=== PATIENT | male | born 1980 | race Caucasian/White ===

== ENCOUNTER 2016-07-27 01:22 | Observation (INO) | payer BC, MEDICARE ==
[2016-07-27 01:23] VITALS: BMI 26.6
--- NOTE | 2016-07-27 01:48 | ED PDOC ---
Arrival/HPI - General Chief Complaint: Chest Pain Time Seen by Provider: 07/27/16 01:24 Historian: Patient - History of Present Illness Narrative History of Present Illness (Text): 07/27/16 01:48 Andreas Monroe is a 34 year old male, whose PMHx includes renal failure with hemodialysis Wednesday//Wednesday, hypertension, neurogenetic bladder, and spinal stenosis, who presents to the ED complaining of chest pain. Patient states he woke up with mid-sternal chest pressure tonight at home. Patient notes before going to sleep tonight he was experiencing palpitations. Patient denies any fever, chills, shortness of breath, nausea, vomiting, diarrhea, urinary symptoms, back pain, neck pain, headache, dizziness, or any other complaints. PMD: Dr. Joshua Suarez Time/Duration: Other (tonight) Symptom Onset: Gradual Symptom Course: Unchanged Quality: Pressure Activities at Onset: Rest, Light, Sleeping Context: Home Past Medical History - Provider Review Nursing Documentation Reviewed: Yes - Infectious Disease Hx of Infectious Diseases: None - Tetanus Immunization Tetanus Immunization: Unknown - Cardiac Hx Hypertension: Yes Hx Pacemaker: No - Pulmonary Hx Respiratory Disorders: (SMOKES CIGARETTE H/O) Hx Asthma: No Hx Bronchitis: No Hx Chronic Obstructive Pulmonary Disease (COPD): No Hx Emphysema: No Hx Pneumonia: Yes - Neurological Hx Paralysis: No - HEENT Hx HEENT Disorder: No - Renal Hx Renal Disorder: Yes (LEFT NEPHRECTOMY) Hx Dialysis: Yes Date of Last Dialysis Treatment: 12/18/14 Hx Neurogenic Bladder: Yes Hx Renal Failure: Yes Other/Comment: straight cath - Endocrine/Metabolic Hx Endocrine Disorders: No Hx Hyperthyroidism: No Hx Hypothyroidism: No - Hematological/Oncological Hx Blood Transfusions: No Hx Blood Transfusion Reaction: No - Integumentary Hx Dermatological Disorder: No - Musculoskeletal/Rheumatological Hx Musculoskeletal Disorders: Yes (SPINAL SX -SPINAL CHORD SYNDROME) - Gastrointestinal Hx Gastrointestinal Disorders: Yes (CHRONIC CONSTIPATION,GI BLEED 15) Hx Constipation: Yes Hx Crohn's Disease: No Hx Diverticulitis: No Hx Gastroesophageal Reflux: No Hx Gastrointestinal Ulcer: No Hx Liver Failure: No Other/Comment: CONSTIPATION - Genitourinary/Gynecological Hx Genitourinary Disorders: Yes (ANURIA) Other/Comment: straight cath secondary to neurogenic bladder - Psychiatric Hx Emotional Abuse: No Hx Physical Abuse: No Hx Substance Use: Yes - Surgical History Hx Amputation: No Hx Appendectomy: No Hx Cardiac Catheterization: No Hx Section: No Hx Cholecystectomy: No Hx Coronary Stent: No Hx Gastric Bypass Surgery: No Hx Hysterectomy: No Hx Joint Replacement: No Hx Kidney Transplant: No Hx Liver Transplant: No Hx Mastectomy: No Hx Open Heart Surgery: No Hx Orthopedic Surgery: Yes Hx Splenectomy: No Hx Tonsillectomy: No Hx Tubal Ligation: No Hx Valve Replacement: No Hx Vascular Access Device: Yes (AV shunt) Other/Comment: spine surgery, bladder stent, nephrectomy, deviated septum - Anesthesia Hx Anesthesia: No Hx Anesthesia Reactions: No Hx Malignant Hyperthermia: No - Suicidal Assessment Feels Threatened In Home Enviroment: No Family/Social History - Physician Review Nursing Documentation Reviewed: Yes Family/Social History: No Known Family HX Smoking Status: Former Smoker Hx Alcohol Use: Yes Hx Substance Use: Yes Hx Substance Use Treatment: No Allergies/Home Meds Allergies/Adverse Reactions: Allergies levofloxacin Allergy (Intermediate, Verified 08/05/15 20:11) ITCHING vancomycin Allergy (Intermediate, Verified 08/05/15 20:11) RASH Home Medications: Home Meds Medication Instructions Recorded Confirmed Acetaminophen/Oxycodone Hydr 10 mg PO DAILY 05/13/14 08/05/15 [Percocet 10/325 mg Tab] Amphetamine Salt Combination 20 mg PO DAILY 05/13/14 08/05/15 [Adderall] Doxazosin [Cardura] 8 mg PO HS 05/13/14 08/05/15 Minoxidil [Loniten] 20 mg PO BID 05/13/14 08/05/15 Sevelamer Carbonate [Renvela] 800 mg PO AC 05/13/14 08/05/15 buPROPion XL [Wellbutrin XL] 300 mg PO QAM 05/13/14 08/05/15 cloNIDine 0.3 mg/24 hr 0.4 mg PO QWK 05/13/14 08/05/15 [catapres-TTS3 0.3 mg/24 hr] Escitalopram [Lexapro] 20 mg PO DAILY 07/20/14 08/05/15 Oxybutynin ER 10 mg PO HS 07/20/14 08/05/15 Review of Systems - Physician Review All systems were reviewed & negative as marked: Yes - Review of Systems Constitutional: Normal. absent: Fevers Eyes: Normal ENT: Normal Respiratory: Normal. absent: SOB, Cough Cardiovascular: Chest Pain, Palpitations Gastrointestinal: Normal. absent: Abdominal Pain, Diarrhea, Nausea, Vomiting Genitourinary Male: Normal. absent: Dysuria, Frequency, Hematuria, Urinary Output Changes Musculoskeletal: Normal. absent: Back Pain, Neck Pain Skin: Normal. absent: Rash Neurological: Normal. absent: Headache, Dizziness Endocrine: Normal Hemo/Lymphatic: Normal Psychiatric: Normal Physical Exam Vital Signs Reviewed: Yes Vital Signs Temp Pulse Pulse Resp BP Pulse Ox 07/27/16 04:41 191/109 H 07/27/16 04:39 82 18 95 07/27/16 02:02 85 07/27/16 01:23 98.1 F 78 20 177/82 H 98 Temperature: Afebrile Blood Pressure: Hypertensive Pulse: Regular Respiratory Rate: Normal Appearance: Positive for: Well-Appearing, Non-Toxic, Comfortable Pain Distress: None Mental Status: Positive for: Alert and Oriented X 3 - Systems Exam Head: Present: Atraumatic, Normocephalic Pupils: Present: PERRL Extroacular Muscles: Present: EOMI Conjunctiva: Present: Normal Mouth: Present: Moist Mucous Membranes Neck: Present: Normal Range of Motion Respiratory/Chest: Present: Clear to Auscultation, Good Air Exchange. No: Respiratory Distress, Accessory Muscle Use Cardiovascular: Present: Regular Rate and Rhythm, Normal S1, S2. No: Murmurs Abdomen: Present: Normal Bowel Sounds. No: Tenderness, Distention, Peritoneal Signs Back: Present: Normal Inspection Upper Extremity: Present: Normal Inspection. No: Cyanosis, Edema Lower Extremity: Present: Normal Inspection. No: Edema Neurological: Present: GCS=15, CN II-XII Intact, Speech Normal Skin: Present: Warm, Dry, Normal Color. No: Rashes Psychiatric: Present: Alert, Oriented x 3, Normal Insight, Normal Concentration Medical Decision Making ED Course and Treatment: 07/27/16 01:48 Impression: 35 year old male complaining of chest pressure tonight with palpitations. Differential Diagnosis include but are not limited to: Plan: -- EKG -- Chest X-ray -- Labs, cardiac enzymes -- Nitroglycerin -- Aspirin -- Morphine -- Reassess and disposition Prior Visits: Notes and results from previous visits were reviewed. Progress Notes: Reviewed EKG, NSR at [address] bpm[address] Non-specific ST/T-wave changes. 07/27/16 04:23 Reviewed radiology, Chest X-ray shows no active disease. 07/27/16 05:[address] Suarez, who is aware and agrees with plan. Accepts pt in to her service. Pt will go to Telemetry observation for chest pain and hyperkalemia. Requests Dr. Loob on consult. Pt is no acute distress. Discussed results and hospital observation plan with pt , who is aware and verbalizes understanding. - Lab Interpretations Lab Results: 07/27/16 02:07 07/27/16 04:20 Lab Results 07/27/16 04:20: Sodium 140, Potassium 5.6 H* D, Chloride 99, Carbon Dioxide 29, Anion Gap 18, BUN 47 H, Creatinine 9.1 H*, Est GFR ( Amer) 8, Est GFR ( Non-Af Amer) 7, Random Glucose 99, Calcium 9.7, Total Bilirubin 0.9, AST 22, ALT 28, Alkaline Phosphatase 98, Lactate Dehydrogenase 398, Total Creatine Kinase 64, Troponin I 0.06, Total Protein 7.0, Albumin 4.0, Globulin 3.0, Albumin/Globulin Ratio 1.3 07/27/16 02:07: WBC 4.5, RBC 3.78, Hgb 12.0 L, Hct 35.0 L, MCV 92.6, MCH 31.7, MCHC 34.3, RDW 16.1 H, Plt Count 106 L, MPV 11.0, PT 12.2 H, INR 1.13 H, APTT 29.4 I have reviewed the lab results: Yes - RAD Interpretation Radiology Orders: 07/27/16 01:49 CHEST PORTABLE [RAD] Stat Bass Fisher: ED Physician - EKG Interpretation Interpreted by ED Physician: Yes Type: 12 lead EKG - Medication Orders Current Medication Orders: Discontinued Medications Aspirin (Aspirin) 325 mg PO ONCE STA Stop: 07/27/16 01:52 Last Admin: 07/27/16 02:18 Dose: 325 MG Clonidine HCl (Catapres) 0.2 mg PO STAT STA Stop: 07/27/16 05:08 Last Admin: 07/27/16 05:16 Dose: 0.2 MG Dextrose (Dextrose 50% Inj) 50 ml IVP ONCE ONE Stop: 07/27/16 05:09 Last Admin: 07/27/16 05:17 Dose: 50 ML IVP Administration Document 07/27/16 05:17 GMD (Rec: 07/27/16 05:17 GMD [id number]) Charges for Administration # of IVP Administrations 1 Insulin Human Regular (Humulin R) 10 units IVP STAT STA Stop: 07/27/16 05:09 Last Admin: 07/27/16 05:17 Dose: 10 UNITS IVP Administration Document 07/27/16 05:17 GMD (Rec: 07/27/16 05:17 GMD [id number]) Charges for Administration # of IVP Administrations 1 Morphine Sulfate (Morphine) 2 mg IVP STAT STA Stop: 07/27/16 01:52 Last Admin: 07/27/16 02:17 Dose: 2 MG MAR Pain Assessment Document 07/27/16 02:17 FJA (Rec: 07/27/16 02:18 [id number]) Pain Reassessment Is this a pain reassessment? Yes Sleep Is patient sleeping during reassessment? No Presence of Pain Presence of Pain No IVP Administration Document 07/27/16 02:17 FJA (Rec: 07/27/16 02:18 [id number]) Charges for Administration # of IVP Administrations 1 Nitroglycerin (Nitro-Bid 2% Oint) 1 ea TOP ONCE STA Stop: 07/27/16 01:52 Last Admin: 07/27/16 02:17 Dose: 1 EA Sodium Polystyrene Sulfonate (Kayexalate Oral Susp) 30 gm PO ONCE ONE Stop: 07/27/16 05:08 Last Admin: 07/27/16 05:16 Dose: 30 GM - Scribe Statement The provider has reviewed the documentation as recorded by the Pattie Warren Provider Attestation: All medical record entries made by the Pattie were at my direction and personally dictated by me. I have reviewed the chart and agree that the record accurately reflects my personal performance of the history, physical exam, medical decision making, and the department course for this patient. I have also personally directed, reviewed, and agree with the discharge instructions and disposition. Disposition/Present on Arrival - Present on Arrival Any Indicators Present on Arrival: No History of DVT/PE: No History of Uncontrolled Diabetes: No Urinary Catheter: No History of Decub. Ulcer: No History Surgical Site Infection Following: None - Disposition Have Diagnosis and Disposition been Completed?: Yes Diagnosis: Chest pain, Renal failure, Hyperkalemia Disposition: HOSPITALIZED Disposition Time: 05:28 Patient Plan: Observation Patient Problems: Current Active Problems Problem Status Diagnosed Chest pain Acute Hyperkalemia Acute Renal failure Acute Condition: STABLE
[2016-07-27] MEDS ORDERED: Nitroglycerin 2% Ointment Foilpak UD TOP STA (01:51)
[2016-07-27] MEDS ORDERED: Morphine 2 mg/ml ISec IVP STA (01:51)
[2016-07-27 02:41] LABS: INR 1.13 (0.93-1.08); PARTIAL THROMBOPLASTIN TIME 29.4 Seconds (23.7-30.8)
[2016-07-27 02:44] LABS: MEAN CELL VOLUME 92.6 fL (80.0-105.0); MEAN CORPUSCULAR HEMOGLOBIN 31.7 pg (25.0-35.0); MEAN CORPUSCULAR HGB CONC 34.3 g/dl (31.0-37.0); RED CELL DISTRIBUTION WIDTH 16.1 % (11.5-14.5); WHITE BLOOD COUNT 4.5 10^3/ul (4.5-11.0)
[2016-07-27 04:55] LABS: ALB/GLOB RATIO 1.3 (1.1-1.8); BILIRUBIN,TOTAL 0.9 mg/dL (0.2-1.3); CALCIUM 9.7 mg/dL (8.4-10.5)
[2016-07-27 05:00] LABS: POTASSIUM 5.6 mmol/L (3.6-5.0)
[2016-07-27 05:06] LABS: TROPONIN I 0.06 ng/mL
[2016-07-27] MEDS ORDERED: Sod Polystyrene Sulf 15 gm/60 ml Oral Susp PO ONE (05:07)
[2016-07-27] MEDS ORDERED: Dextrose 50% SYRINGE Inj (50 ml) IVP ONE (05:08)
[2016-07-27] MEDS ORDERED: Insulin Regular 1 UNITS/0.01 ML ML IVP STA (05:08)
[2016-07-27 07:41] VITALS: TEMP 97.7
--- NOTE | 2016-07-27 08:18 | RAD ---
HISTORY: Chest pain COMPARISON: 08/05/2015. FINDINGS: LUNGS: There is pulmonary venous congestion, prominent central vasculature and interstitial pulmonary edema. There is no focal consolidation. . PLEURA: No significant pleural effusion identified, no pneumothorax apparent. CARDIOVASCULAR: There is persistent moderate cardiomegaly. OSSEOUS STRUCTURES: No significant abnormalities. VISUALIZED UPPER ABDOMEN: Normal. OTHER FINDINGS: None. IMPRESSION: Findings are most compatible with mild congestive heart failure.
[2016-07-27 09:09] VITALS: BP 151/76; PULSE 78; RESP 20; O2SAT 95
--- NOTE | 2016-07-27 09:53 | CARD ---
APPROVED REPORT EKG Measurement Heart [id number] <Conclusion> Normal sinus rhythm Possible Left atrial enlargement Mildly prolonged QTc LVH by voltage No change except QTC is shorter now.
--- NOTE | 2016-07-27 11:51 | CP.PCM.CON ---
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 - [facility]), presented to the ED shortly after waking up last night with numbness in bilateral jaws and R arm; Patient reports some associated shortness of breath but no chest pain, only a feeling of his heart beating slow; he has had similar symptoms previously that he says occurs when BP elevated but not recently and not on a regular basis, and usually gets chest pain with these symptoms; Patient otherwise is adherent to his HD schedule with last treatment 2 days ago per routine, 3.5 hrs, with weight at end of HD being 71.8 kg (EDW 71.4 kg per patient); denies missing HD or coming off early; he reports generally being compliant with salt and fluid intake but does report some dietary indiscretion yesterday. Review of Systems - Constitutional Constitutional: absent: Anorexia, Chills - EENT Eyes: Blurred Vision. absent: Change in Vision Ears: absent: Decreased Hearing Nose/Mouth/Throat: Nasal Congestion, Sinus Pain, Sinus Pressure. absent: Sore Throat - Cardiovascular Cardiovascular: absent: Chest Pain, Chest Pain with Activity, Dyspnea on Exertion, Edema - Respiratory Respiratory: absent: Cough, Dyspnea on Exertion - Gastrointestinal Gastrointestinal: Constipation. absent: Vomiting - Genitourinary Genitourinary: absent: Dysuria, Hematuria Additional comments: scant urine - Musculoskeletal Additional comments: neck and L shoulder arthritis (chronic, on percocet 10-15 mg once daily) - Integumentary Integumentary: absent: Pruritus, Rash - Neurological Neurological: absent: Dizziness, Numbness - Psychiatric Psychiatric: Anxiety, Depression. absent: Suicidal Ideation - Hematologic/Lymphatic Hematologic: absent: Easy Bleeding, Easy Bruising Past Patient History - Infectious Disease Hx of Infectious Diseases: None - Tetanus Immunizations Tetanus Immunization: Unknown - Past Medical History & Family History Past Medical History?: Yes - Past Social History Smoking Status: Never Smoked - CARDIAC Hx Hypertension: Yes Hx Pacemaker: No - PULMONARY Hx Respiratory Disorders: (SMOKES CIGARETTE H/O) Hx Asthma: No Hx Bronchitis: No Hx Chronic Obstructive Pulmonary Disease (COPD): No Hx Emphysema: No Hx Pneumonia: Yes - NEUROLOGICAL Hx Paralysis: No - HEENT Hx HEENT Problems: No - RENAL Hx Chronic Kidney Disease: Yes (LEFT NEPHRECTOMY) Hx Dialysis: Yes Date of Last Dialysis Treatment: 12/18/14 Hx Neurogenic Bladder: Yes Hx Renal Failure: Yes Other/Comment: straight cath - ENDOCRINE/METABOLIC Hx Endocrine Disorders: No Hx Hyperthyroidism: No Hx Hypothyroidism: No - HEMATOLOGICAL/ONCOLOGICAL Hx Blood Transfusions: No Hx Blood Transfusion Reaction: No - INTEGUMENTARY Hx Dermatological Problems: No - MUSCULOSKELETAL/RHEUMATOLOGICAL Hx Musculoskeletal Disorders: Yes (SPINAL SX -SPINAL CHORD SYNDROME) - GASTROINTESTINAL Hx Gastrointestinal Disorders: Yes (CHRONIC CONSTIPATION,GI BLEED 07-20-14) Hx Constipation: Yes Hx Crohn's Disease: No Hx Diverticulitis: No Hx Gastroesophageal Reflux: No Hx Liver Failure: No Other/Comment: CONSTIPATION - GENITOURINARY/GYNECOLOGICAL Hx Genitourinary Disorders: Yes (ANURIA) Other/Comment: straight cath secondary to neurogenic bladder - PSYCHIATRIC Hx Emotional Abuse: No Hx Physical Abuse: No Hx Substance Use: Yes - SURGICAL HISTORY Hx Amputation: No Hx Appendectomy: No Hx Cardiac Catheterization: No Hx Section: No Hx Cholecystectomy: No Hx Coronary Stent: No Hx Gastric Bypass Surgery: No Hx Hysterectomy: No Hx Joint Replacement: No Hx Kidney Transplant: No Hx Liver Transplant: No Hx Mastectomy: No Hx Open Heart Surgery: No Hx Orthopedic Surgery: Yes Hx Splenectomy: No Hx Tonsillectomy: No Hx Tubal Ligation: No Hx Valve Replacement: No Hx Vascular Access Device: Yes (AV shunt) Other/Comment: spine surgery, bladder stent, nephrectomy, deviated septum - ANESTHESIA Hx Anesthesia: No Hx Anesthesia Reactions: No Hx Malignant Hyperthermia: No Meds Allergies/Adverse Reactions: Allergies Allergy/AdvReac Type Severity Reaction Status Date / Time levofloxacin Allergy Intermediate ITCHING Verified 08/05/15 20:11 vancomycin Allergy Intermediate RASH Verified 08/05/15 20:11 Physical Exam - Constitutional Appears: Well, No Acute Distress - Head Exam Head Exam: NORMAL INSPECTION - Eye Exam Eye Exam: Normal appearance. absent: Scleral icterus - ENT Exam ENT Exam: Mucous Membranes Moist Additional comments: no hearing deficit - Neck Exam Neck exam: Positive for: Normal Inspection - Respiratory Exam Respiratory Exam: Clear to Auscultation Bilateral, NORMAL BREATHING PATTERN. absent: Rales, Rhonchi, Wheezes, Respiratory Distress - Cardiovascular Exam Cardiovascular Exam: REGULAR RHYTHM, RRR. absent: JVD, +S1, +S2 - GI/Abdominal Exam GI & Abdominal Exam: Soft, Tenderness. absent: Distended Additional comments: mild/moderate generalized tenderness - Exam Exam: absent: Bladder Distension - Extremities Exam Additional comments: Mild lower leg edema bilaterally; - Neurological Exam Neurological exam: Alert, Oriented x3 Additional comments: 5/5 motor strength in bilateral UE and LE - Psychiatric Exam Psychiatric exam: Normal Affect, Normal Mood - Skin Skin Exam: Normal Color, Warm Results - Vital Signs Recent Vital Signs: Last Vital Signs Temp 97.7 F 07/27/16 07:40 Pulse 78 07/27/16 09:09 Resp 20 07/27/16 09:09 BP 151/76 H 07/27/16 09:09 Pulse Ox 95 07/27/16 09:09 - Labs Result Diagrams: 07/27/16 02:07 07/27/16 04:20 - Imaging and Cardiology Chest x-ray Additional comment: Pulmonary vascular congestion; Assessment & Plan (1) Chest pain Assessment and Plan: Atypical presentation, ruling out ACS; ESRD major risk factor for cardiovascular disease; Status: Acute (2) ESRD on hemodialysis Assessment and Plan: Evidence of volume excess on exam and CXR findings; mild hyperkalemia; dialyzing urgently today on 2K/2.5Ca dialysate over 2 hrs with 2L UF goal; will get regularly scheduled HD session tomorrow; Status: Acute (3) Hypertensive emergency Assessment and Plan: With evidence of volume overload, may be related to presenting symptoms of atypical chest pain; will benefit from UF on HD; continue home BP meds; Status: Acute (4) Constipation Assessment and Plan: Chronic; unclear etiology but likely worsened by chronic opiate use; avoid phosphate containing Fleets enemas; can use mineral oil enema if needed; Status: Chronic (5) Tethered cord syndrome Assessment and Plan: Reports this to be cause neurogenic bladder and subsequent ESRD; almost anuric at this point; f/u with urology as outpatient; Status: Chronic (6) Chronic kidney disease-mineral and bone disorder Assessment and Plan: Relevant labs not currently available; reports being on phoslo 3-4 tabs tid with meals; continue; will check phos and PTH level; Status: Chronic (7) Anemia Assessment and Plan: Hgb above goal for ESRD (10-11 g); will monitor, no need for EPO at this point; Status: Chronic
[2016-07-27 13:14] LABS: MAGNESIUM 2.5 mg/dL (1.7-2.2); PHOSPHOROUS 4.3 mg/dL (2.5-4.5)
--- NOTE | 2016-07-27 19:21 | HP ---
HISTORY OF PRESENT ILLNESS: The patient is 35 years old, known to me from multiple previous admissio ns and office practice. The patient states yesterday evening he ate very salty chicken sandwich from [employer] and after that he did not feel right. He started to have some chest discomfort. He felt pr essure in his chest and he states it felt like his blood pressure was high, so he came to Emergency R [facility] for further evaluation. His blood pressure was found to be 191/109. He was given clonidine and also he was found to be hyperkalemic. He was given a cocktail of D50 insulin and nebulizer treatment and he was also given Kayexalate. By the time I saw patient, he was doing well. No chest pressure, no shortness of breath. No nausea, vomiting. No diarrhea. PAST MEDICAL HISTORY: Significant for: 1. Hypertension. 2. End-stage renal disease, on hemodialysis. 3. He has history of tethered cord syndrome. Because of that, he has neurogenic bladder. He suffer s from chronic constipation. 4. Chronic sinusitis, status post ____ surgery. ALLERGIES: HE IS ALLERGIC TO LEVAQUIN AND VANCOMYCIN. MEDICATIONS AT HOME: He is on minoxidil 20 mg twice a day. He is on clonidine #3. He is on Wellbut rin 300 mg q.a.m. Renvela 800 before each meal, oxybutynin 10 mg at bedtime, doxazosin 8 mg at bedti me. He takes Adderall once in a while. He is on Percocet as needed, amlodipine 10 mg daily. SOCIAL HISTORY: He works in a car dealership. He is single. Does not have children. Does not smok e. He used to smoke marijuana once in a while to take care of his anxiety and aches and pain. PHYSICAL EXAMINATION: GENERAL: Awake and alert, communicative. VITAL SIGNS: He is afebrile, pulse 70, respirations 20, blood pressure 151/76. LUNGS: Bilateral fair airflow, no rhonchi or crackle. HEART: S1, S2 audible. No murmur. ABDOMEN: Soft, nontender, no rebound, no guarding. 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 NEUROLOGIC: He is awake and alert, communicative. LABORATORY DATA: WBC 4.5, hemoglobin 12, hematocrit 35, platelet of 106. PT 12.2, INR 1.13, PTT 29. 4. Sodium 140, potassium 5.6, chloride 99, CO2 of 29, BUN 47, creatinine 9.1, blood sugar of 9, magn esium 2.5. His x-ray chest is unremarkable except he has mild congestive heart failure changes. ASSESSMENT: 1. Fluid overload secondary to end-stage renal disease and noncompliance with salty food. 2. Uncontrolled hypertension. 3. Tethered cord syndrome. 4. Neurogenic bladder. 5. End-stage renal disease, on hemodialysis. PLAN: The patient was scheduled to have dialysis done at 2:00, but patient states he feels a lot bet ter. Regular dialysis is in the morning and later on after ____, initially he agreed to have dialysi s done today, but he left later on and he states he will have dialysis done tomorrow. He is advised to add amlodipine 10 mg daily. He will continue clonidine, minoxidil and Norvasc is added. He will discontinue hydralazine since it was giving him palpitation. [facility] and he will get dialysis tomorrow. Romero Suarez MD cc: [phone] TT: 07/27/2016 19:20:54 sn
--- NOTE | 2016-08-21 12:58 | DS ---
ADDENDUM This is discharge summary and addendum to the history and physical done earlier on same date. The pa alyse was admitted because of chest pressure. He does admit eating a high salt sandwich from [employer] . He states that he felt he had a chest pressure, headache and had a funny feeling in his whole body , so he came to Emergency Room. He was found to have hyperkalemia. He was given Kayexalate, nebuliz er treatment. He started to feel better. He was admitted in ICU. He was scheduled to have dialysis done. Since patient was feeling better, he left the same day and he states he will get dialysis the very next day on his scheduled date, and he was advised to continue all his medication. Romero Suarez MD cc: [phone] TT: 08/21/2016 12:57:17 en
== END 2016-07-27 13:12 | disposition home or self-care (01) ==
LOC: ED 01:22 → ERH 05:14 → CCU 09:32
PROVIDERS: ADMIT Internal Medicine; ATTEND Internal Medicine
DX: R07.89 Other chest pain (principal); I16.1 Hypertensive emergency; I12.0 Hypertensive chronic kidney disease with stage 5 chronic kidney disease or end stage renal disease; N18.6 End stage renal disease; E87.70 Fluid overload, unspecified; E87.5 Hyperkalemia; Q06.8 Other specified congenital malformations of spinal cord; N31.9 Neuromuscular dysfunction of bladder, unspecified; D64.9 Anemia, unspecified; K59.09 Other constipation; J32.9 Chronic sinusitis, unspecified; Z99.2 Dependence on renal dialysis; Z91.11 Patient's noncompliance with dietary regimen
CPT/HCPCS: 71010; 80053; 82550; 83615; 83735; 84100; 84484; 85027; 85610; 85730; 93005; 96374; 96375; 99285; G0378; J2270

== ENCOUNTER 2017-08-17 01:37 | Emergency (ER) | payer MEDICARE, BC ==
[2017-08-17 02:01] VITALS: BMI 22.1
[2017-08-17 02:04] VITALS: TEMP 97.1
[2017-08-17] MEDS ORDERED: Sodium Chloride 0.9% 1,000 ML IV STA (02:05)
--- NOTE | 2017-08-17 02:12 | ED PDOC ---
Arrival/HPI - General Time Seen by Provider: 08/17/17 01:48 Historian: Patient - History of Present Illness Narrative History of Present Illness (Text): 08/17/17 02:05 36 year old male, whose past medical history includes renal failure s/p right renal transplant (08/10/17 on CellCept and Prograf), hypertension, neurogenetic bladder, and spinal stenosis (on percocet), presents to the emergency department complaining of developed fever, chest pain, and elevated heart rate that began yesterday. Patient was discharged home from [facility] four days after the transplant with no fever and creatinine down to 1.1. As per , the transplant surgeon states if the fever goes above 100F to go the Emergency room, but although the maximum temperature reach was only 98.9F, she was worried about the patient's pulse which elevated to 120. Patient reports constipation and trouble sleeping, but denies any chills, shortness of breath, nausea, vomiting, diarrhea, urinary symptoms, back pain, neck pain, headache, dizziness, or any other complaints. Time/Duration: 24 hours Symptom Onset: Sudden Symptom Course: Unchanged Activities at Onset: Light Context: Home Past Medical History - Provider Review Nursing Documentation Reviewed: Yes - Infectious Disease Hx of Infectious Diseases: None - Tetanus Immunization Tetanus Immunization: Unknown - Cardiac Hx Hypertension: Yes Hx Pacemaker: No - Pulmonary Hx Respiratory Disorders: (SMOKES CIGARETTE H/O) Hx Asthma: No Hx Bronchitis: No Hx Chronic Obstructive Pulmonary Disease (COPD): No Hx Emphysema: No Hx Pneumonia: Yes - Neurological Hx Neurological Disorder: No Hx Paralysis: No - HEENT Hx HEENT Disorder: No - Renal Hx Renal Disorder: Yes (LEFT NEPHRECTOMY 2013) Hx Dialysis: Yes Date of Last Dialysis Treatment: 12/18/14 Hx Neurogenic Bladder: Yes Hx Renal Failure: Yes Other/Comment: has #16 2wf right kidney transplant 08/10/17 - Endocrine/Metabolic Hx Endocrine Disorders: No Hx Hyperthyroidism: No Hx Hypothyroidism: No - Hematological/Oncological Hx Blood Disorders: No Hx Blood Transfusions: No Hx Blood Transfusion Reaction: No - Integumentary Hx Dermatological Disorder: No - Musculoskeletal/Rheumatological Hx Musculoskeletal Disorders: Yes (SPINAL SX -SPINAL CHORD SYNDROME) - Gastrointestinal Hx Gastrointestinal Disorders: Yes (CHRONIC CONSTIPATION,GI BLEED 07-20-14) Hx Constipation: Yes Hx Crohn's Disease: No Hx Diverticulitis: No Hx Gastroesophageal Reflux: No Hx Liver Failure: No Other/Comment: CONSTIPATION - Genitourinary/Gynecological Hx Genitourinary Disorders: Yes Other/Comment: straight cath secondary to neurogenic bladder - Psychiatric Hx Psychophysiologic Disorder: No Hx Emotional Abuse: No Hx Physical Abuse: No Hx Substance Use: No - Surgical History Hx Amputation: No Hx Appendectomy: No Hx Cardiac Catheterization: No Hx Section: No Hx Cholecystectomy: No Hx Coronary Stent: No Hx Gastric Bypass Surgery: No Hx Hysterectomy: No Hx Joint Replacement: No Hx Kidney Transplant: Yes (right 08/10/17) Hx Liver Transplant: No Hx Mastectomy: No Hx Open Heart Surgery: No Hx Orthopedic Surgery: Yes Hx Splenectomy: No Hx Tonsillectomy: No Hx Tubal Ligation: No Hx Valve Replacement: No Hx Vascular Access Device: Yes (AV shunt) Other/Comment: spine surgery, bladder stent, nephrectomy, deviated septum/ left nephrectomy 2014 - Anesthesia Hx Anesthesia: No Hx Anesthesia Reactions: No Hx Malignant Hyperthermia: No - Suicidal Assessment Feels Threatened In Home Enviroment: No Family/Social History - Physician Review Nursing Documentation Reviewed: Yes Family/Social History: No Known Family HX Smoking Status: Never Smoked Hx Alcohol Use: No Hx Substance Use: No Hx Substance Use Treatment: No Allergies/Home Meds Allergies/Adverse Reactions: Allergies levofloxacin Allergy (Intermediate, Verified 08/17/17 01:55) ITCHING vancomycin Allergy (Intermediate, Verified 08/17/17 01:55) RASH Home Medications: Home Meds Medication Instructions Recorded Confirmed Acetaminophen/Oxycodone Hydr 10 mg PO DAILY 05/13/14 08/05/15 [Percocet 10/325 mg Tab] Amphetamine Salt Combination 20 mg PO DAILY 05/13/14 08/05/15 [Adderall] Doxazosin [Cardura] 8 mg PO HS 05/13/14 08/05/15 Minoxidil [Loniten] 20 mg PO BID 05/13/14 08/05/15 Sevelamer Carbonate [Renvela] 800 mg PO AC 05/13/14 08/05/15 buPROPion XL [Wellbutrin XL] 300 mg PO QAM 05/13/14 08/05/15 cloNIDine 0.3 mg/24 hr 0.4 mg PO QWK 05/13/14 08/05/15 [catapres-TTS3 0.3 mg/24 hr] Escitalopram [Lexapro] 20 mg PO DAILY 07/20/14 08/05/15 Oxybutynin ER 10 mg PO HS 07/20/14 08/05/15 Review of Systems - Physician Review All systems were reviewed & negative as marked: Yes - Review of Systems Constitutional: Fevers. absent: Other Respiratory: absent: SOB Cardiovascular: Chest Pain, Other (elevated heart rate) Gastrointestinal: Constipation. absent: Diarrhea, Nausea, Vomiting Genitourinary Male: absent: Dysuria, Frequency, Hematuria Musculoskeletal: absent: Back Pain, Neck Pain Neurological: absent: Headache, Dizziness Physical Exam Vital Signs Reviewed: Yes Vital Signs Temp Pulse Resp BP Pulse Ox 08/17/17 02:39 113 H 20 165/95 H 98 08/17/17 01:56 97.1 F L 121 H 20 176/105 H 100 Temperature: Afebrile Blood Pressure: Hypertensive Pulse: Tachycardic Respiratory Rate: Normal Appearance: Positive for: Well-Appearing, Non-Toxic, Comfortable Pain Distress: None Mental Status: Positive for: Alert and Oriented X 3 - Systems Exam Head: Present: Atraumatic, Normocephalic Pupils: Present: PERRL Extroacular Muscles: Present: EOMI Conjunctiva: Present: Normal Mouth: Present: Moist Mucous Membranes Neck: Present: Normal Range of Motion Respiratory/Chest: Present: Clear to Auscultation, Good Air Exchange. No: Respiratory Distress, Accessory Muscle Use Cardiovascular: Present: Regular Rate and Rhythm, Normal S1, S2. No: Murmurs Abdomen: Present: Tenderness (to palpation on incision site to the right groin) , Other ((-) Hematoma (-) warmth (-) drainage to incision site). No: Distention , Peritoneal Signs Back: Present: Normal Inspection Upper Extremity: Present: Normal Inspection, Other (Left arm dialysis fistula ) . No: Cyanosis, Edema Lower Extremity: Present: Normal Inspection. No: Edema Neurological: Present: GCS=15, CN II-XII Intact, Speech Normal Skin: Present: Warm, Dry, Normal Color. No: Rashes Psychiatric: Present: Alert, Oriented x 3, Normal Insight, Normal Concentration Medical Decision Making ED Course and Treatment: 08/17/17 02:02 Impression: 36 year old male presents complaining of fever, chest pain, and elevated pulse that began yesterday. Patient was discharged from [facility] four days after the transplant on 08/09/17. Plan: -- VBG -- Labs -- IV Fluids, Tylenol -- Blood Culture, Urine Culture -- Urinalysis -- Reassess and disposition Prior Visits: Notes and results from previous visits were reviewed. Patient was last seen in the emergency department on 07/27/17 presents complaining of chest pain that began tonight. Patient was admitted. Progress Notes: EKG shows Sinus Tachycardia at 118 BPM with possible left atrial enlargement. Interpreted by me. 08/17/17 02:25 Called Transplant Service at [phone] [address] discussed [address] Boston at [facility] who is aware and recommends patient to come to the [facility] for evaluation. Notified patient on recommended course from the attending Doctor. Patient agrees with the plan to be discharged and continue workup at [facility]. Patient is stable for discharge. 08/17/17 02:55 Patient reports he stopped taking percocet 4 days ago due to the constipation. It is a possibility that he is in narcotic withdrawal which is causing the tachycardia and feeling anxious. Will give patient 2ml Ativan PO. Patient and his are in agreement with the plan. - Lab Interpretations Lab Results: 08/17/17 02:17 08/17/17 02:17 Lab Results 08/17/17 02:17: Sodium 141, Chloride 109 H, Potassium 5.3 H, Carbon Dioxide 19 L , Anion Gap 18, BUN 26 H, Creatinine 1.1, Est GFR ( Amer) > 60, Est GFR ( Non-Af Amer) > 60, Random Glucose 100, Calcium 10.5, Total Bilirubin 0.9, AST 49 , ALT 78 H, Alkaline Phosphatase 103, Total Protein 7.6, Albumin 4.3, Globulin 3.3, Albumin/Globulin Ratio 1.3 08/17/17 02:17: pO2 45, VBG pH 7.35, VBG pCO2 40.0, VBG HCO3 22.1, VBG Total CO2 23.3, VBG O2 Sat (Calc) 86.7 H, VBG Base Excess -3.3 L, VBG Potassium 5.1, Sodium 137.0, Chloride 110.0 H, Glucose 99, Lactate 0.7, FiO2 21.0, Venous Blood Potassium 5.1 08/17/17 02:17: PT 12.5, INR 1.09 H 08/17/17 02:17: WBC 5.4, RBC 4.22, Hgb 13.4 L, Hct 38.0 L, MCV 90.0, MCH 31.8, MCHC 35.3, RDW 16.7 H, Plt Count 126, MPV 12.1 H, Gran % 73.5 H, Lymph % (Auto) 11.2 L, [place] % (Auto) 12.9 H, Eos % (Auto) 2.2, Baso % (Auto) 0.2, Gran # 4.00, Lymph # (Auto) 0.6 L, [place] # (Auto) 0.7 H, Eos # (Auto) 0.1, Baso # (Auto) 0.01 I have reviewed the lab results: Yes - EKG Interpretation Interpreted by ED Physician: Yes Type: 12 lead EKG - Medication Orders Current Medication Orders: Discontinued Medications Acetaminophen (Tylenol 325mg Tab) 650 mg PO STAT STA Stop: 08/17/17 02:06 Last Admin: 08/17/17 02:37 Dose: 650 mg MAR Pain/Vitals Document 08/17/17 02:37 SS (Rec: 08/17/17 02:38 SS [id number]) Pain Reassessment Is This A Pain ReAssessment? No Sleep Is patient sleeping during reassessment? No Presence of Pain Presence of Pain No Sodium Chloride (Sodium Chloride 0.9%) 1,000 mls @ 999 mls/hr IV .Q1H1M STA Stop: 08/17/17 03:05 Last Admin: 08/17/17 02:38 Dose: 999 mls/hr eMAR Start Stop Document 08/17/17 02:38 SS (Rec: 08/17/17 02:38 SS [id number]) Intravenous Solution Start Date 08/17/17 Start Time 02:38 End Date 08/17/17 End time 03:38 Total Infusion Time 60 Lorazepam (Ativan) 2 mg PO ONCE ONE PRN Reason: Protocol Stop: 08/17/17 02:51 Last Admin: 08/17/17 02:58 Dose: 2 mg - Scribe Statement The provider has reviewed the documentation as recorded by the Pattie Killian Provider [place] Attestation: All medical record entries made by the Pattie were at my direction and personally dictated by me. I have reviewed the chart and agree that the record accurately reflects my personal performance of the history, physical exam, medical decision making, and the department course for this patient. I have also personally directed, reviewed, and agree with the discharge instructions and disposition. Disposition/Present on Arrival - Present on Arrival Any Indicators Present on Arrival: No History of DVT/PE: No History of Uncontrolled Diabetes: No Urinary Catheter: No History of Decub. Ulcer: No History Surgical Site Infection Following: None - Disposition Have Diagnosis and Disposition been Completed?: Yes Diagnosis: Tachycardia, Anxiety, Constipation, Renal transplant recipient, Withdrawal from opioids Disposition: HOME/ ROUTINE Disposition Time: 03:10 (To ED at [facility], Transplant Service) Patient Plan: Discharge, Transfer To (ED by POV, Renal Transplant Service) Condition: GOOD Additional Instructions: Go Directly to the ED at [facility], Tell them to contact Dr. Boston! It was a pleasure to meet you. Best of luck! Dr. Aaron Del Real
[2017-08-17 02:35] LABS: BASO # 0.01 K/mm3 (0.0-2.0); BASO % 0.2 % (0.0-3.0); EOS # 0.1 (0.0-0.7); EOS % 2.2 % (1.5-5.0); GRAN % 73.5 % (50.0-68.0); HEMOGLOBIN 13.4 g/dL (14.0-18.0); LYMPH # 0.6 (1.2-3.4); LYMPH % 11.2 % (22.0-35.0); MEAN CORPUSCULAR HEMOGLOBIN 31.8 pg (25.0-35.0); MEAN CORPUSCULAR HGB CONC 35.3 g/dl (31.0-37.0); MEAN PLATELET VOLUME 12.1 fl (7.0-11.0); MONO # 0.7 (0.1-0.6); MONO % 12.9 % (1.0-6.0); RBC 4.22 10^6/uL (3.5-6.1); RED CELL DISTRIBUTION WIDTH 16.7 % (11.5-14.5); WHITE BLOOD COUNT 5.4 10^3/ul (4.5-11.0)
[2017-08-17 02:39] VITALS: O2SAT 98
[2017-08-17 02:40] LABS: VENOUS BLOOD GAS BASE EXCESS -3.3 mmol/L (0.0-2.0); VENOUS BLOOD GAS PO2 45 mm/Hg (30-55); VENOUS BLOOD PH 7.35 (7.32-7.43)
[2017-08-17 02:44] LABS: ALB/GLOB RATIO 1.3 (1.1-1.8); ALBUMIN 4.3 g/dL (3.0-4.8); ALT/SGPT 78 U/L (7-56); AST/SGOT 49 U/L (17-59); BLOOD UREA NITROGEN 26 mg/dL (7-21); CALCIUM 10.5 mg/dL (8.4-10.5); GFR AFRICAN-AMERICAN > 60; GFR NON-AFRICAN AMERICAN > 60
[2017-08-17 02:53] LABS: INR 1.09 (0.93-1.08); PROTHROMBIN TIME 12.5 SECONDS (9.4-12.5)
[2017-08-17 03:43] VITALS: BP 157/78; PULSE 111; RESP 18
--- NOTE | 2017-08-17 18:54 | CARD ---
APPROVED REPORT EKG Measurement Heart [id number] <Conclusion> Sinus tachycardia Possible Left atrial enlargement Borderline ECG
== END 2017-08-17 03:43 | disposition home or self-care (01) ==
LOC: ED 01:37
DX: F41.9 Anxiety disorder, unspecified (principal); K59.00 Constipation, unspecified; R00.0 Tachycardia, unspecified; Z94.0 Kidney transplant status; F11.23 Opioid dependence with withdrawal; I10 Essential (primary) hypertension
CPT/HCPCS: 80053; 82803; 85025; 85610; 87040; 93005; 96360; 99283; J7040